=== PATIENT | male | born 1985 | race American Indian/Alaskan Native ===

== ENCOUNTER 2018-04-14 04:11 | Emergency (ER) | payer SELFPAY ==
[2018-04-14 04:28] VITALS: BP 127/82
--- NOTE | 2018-04-14 05:03 | XRay Report ---
FINAL REPORT EXAM: XR HAND 3+V RT HISTORY: pain and swelling COMPARISONS: None. FINDINGS: Three views right hand No bone lesion, periosteal reaction, or fracture. A fine linear lucency extending vertically through the proximal aspect of the 3rd distal phalanx seen only on oblique view is most likely incidental and atraumatic in nature. No deformity or gross malalignment. IMPRESSION: No fracture or gross malalignment in the right hand.
--- NOTE | 2018-04-14 06:02 | Emergency Department Report ---
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 States while running up stairs, hit his hand on a right radial which also pain and swelling was continuing to aggravate him since the onset. Pain is worse with range of motion and palpation and [id number] medication has not been helpful presents today to evaluate for possible for possible fracture. ED Review of Systems ROS: Stated complaint: RIGHT HAND PAIN WRIST HAND PLAIN Other details as noted in HPI Constitutional: denies: chills, fever Eyes: denies: eye pain, eye discharge, vision change ENT: denies: ear pain, throat pain Respiratory: denies: cough, shortness of breath, wheezing Cardiovascular: denies: chest pain, palpitations Endocrine: no symptoms reported Gastrointestinal: denies: abdominal pain, nausea, diarrhea Genitourinary: denies: urgency, dysuria Musculoskeletal: arthralgia. denies: back pain, joint swelling Skin: denies: rash, lesions Neurological: denies: headache, weakness, paresthesias Psychiatric: denies: anxiety, depression Hematological/Lymphatic: denies: easy bleeding, easy bruising ED Past Medical Hx - Past Medical History Previous Medical History?: Yes Hx Asthma: Yes - Surgical History Past Surgical History?: Yes Additional Surgical History: right finger - Social History Smoking Status: Current Some Day Smoker Substance Use Type: Alcohol - Medications Home Medications: Home Medications Medication Instructions Recorded Confirmed Last Taken Type Ketorolac [Toradol] 10 mg PO Q6H PRN #10 tablet 04/14/18 Unknown Rx Upper Extremity Exam - Exam General: Vital signs noted. No distress. Alert and acting appropriately. Head and Torso: No HEENT Abnormality, No Neck Tenderness, No Chest/Lungs Abnormality, No Abdominal Tenderness, No Back Tenderness Shoulder Exam: Yes Normal Range of Motion in Shoulder, No Shoulder Tenderness, No Clavicle Tenderness, No Shoulder Deformity, No AC Joint Tenderness Arm Exam: No Arm/Humerus Tenderness, No Arm Deformity Elbow: No Elbow Tenderness, No Normal Range of Motion in Elbow, No Elbow Deformity Forearm: No Forearm Tenderness, No Forearm Deformity, No Pain with Pronation, No Pain with Supination Wrist: Yes Normal ROM in Wrist, No Wrist Tenderness, No Wrist Deformity, No Snuffbox Tenderness, No Pain with Axial Thumb Compression Hand: Yes Hand Tenderness (there is tenderness to the V2 to the dorsum of the hand with some mild swelling. 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 No numbness or tingling. Capillary refills are brisk), Yes Digit Tenderness, Yes Normal ROM in Digit(s), No Hand Deformity, No Digit(s) Deformity, No Tendon Dysfunction CMS Exam: No Broken Skin, No Normal Distal Pulses, No Normal Capillary Refill, No Normal Distal Sensation ED Course Vital Signs 04/14/18 04/14/18 04:27 04:29 Temperature 98.5 F 98.5 F Pulse Rate 59 L 59 L Respiratory 16 18 Rate Blood Pressure 127/82 Blood Pressure 127/82 [Right] O2 Sat by Pulse 99 99 Oximetry ED Medical Decision Making - Radiology Data Radiology results: report reviewed No fracture noted Critical care attestation.: If time is entered above; I have spent that time in minutes in the direct care of this critically ill patient, excluding procedure time. ED Disposition Clinical Impression: Hand contusion Disposition: - TO HOME OR SELFCARE Is pt being admited?: No Does the pt Need Aspirin: No Condition: Stable Instructions: Contusion in Adults (ED) Prescriptions: Ketorolac [Toradol] 10 mg PO Q6H PRN #10 tablet PRN Reason: Pain Referrals: PHUONG HUBBARD MD [Primary Care Provider] - 3-5 Days
[2018-04-14] MEDS ORDERED: ULTRAM PO ONE (06:33)
[2018-04-14] MEDS ORDERED: ULTRAM ONE (06:36)
== END 2018-04-14 07:09 | disposition home or self-care (01) ==
LOC: ED 04:11
DX: S60.221A Contusion of right hand, initial encounter (principal); J45.909 Unspecified asthma, uncomplicated; F17.200 Nicotine dependence, unspecified, uncomplicated; W22.8XXA Striking against or struck by other objects, initial encounter; Y93.02 Activity, running; Y99.8 Other external cause status; Y92.89 Other specified places as the place of occurrence of the external cause
CPT/HCPCS: 99283